=== PATIENT | female | born 1975 | race Two or more races ===

== ENCOUNTER 2017-06-20 01:11 | Emergency (ER) | payer SELFPAY ==
[2017-06-20] MEDS ORDERED: LIDOCAINE 4%/TETRACAINE 0.5%/EPI 0.18% 5 ML TOPICAL SOLN TOP ONE (03:18)
--- NOTE | 2017-06-20 03:19 | ER Document Report ---
ED Skin Rash/Insect Bite/Abscs - General Chief Complaint: Abscess Stated Complaint: INNER THIGH PAIN Time Seen by Provider: 06/20/17 03:12 Notes: Patient is a 41-year-old female comes emergency department for chief complaint of a tender, red, draining area on her right inner thigh. This has been going on for about 1 week. She denies fevers, nausea or vomiting, denies any other complaints. She denies any daily medications or history of same. TRAVEL OUTSIDE OF THE [place] IN LAST 30 DAYS: No - Related Data Allergies/Adverse Reactions: ciprofloxacin [From Cipro] Allergy (Verified 06/20/17 02:28) Past Medical History - General Information source: Patient - Social History Smoking Status: Current Every Day Smoker Chew tobacco use (# tins/day): No Frequency of alcohol use: None Drug Abuse: None Lives with: Family Family History: Reviewed & Not Pertinent Patient has suicidal ideation: No Patient has homicidal ideation: No - Medical History Medical History: Negative Renal/ Medical History: Denies: Hx Peritoneal Dialysis Surgical Hx: Negative - Immunizations Immunizations up to date: Yes Hx Diphtheria, Pertussis, Tetanus Vaccination: Yes Review of Systems - Review of Systems Constitutional: No symptoms reported EENT: No symptoms reported Cardiovascular: No symptoms reported Respiratory: No symptoms reported Gastrointestinal: No symptoms reported Genitourinary: No symptoms reported Female Genitourinary: No symptoms reported Musculoskeletal: No symptoms reported Skin: See HPI Hematologic/Lymphatic: No symptoms reported Neurological/Psychological: No symptoms reported Physical Exam - Vital signs Vitals: Temp Pulse Resp BP Pulse Ox 98.3 F 92 18 120/74 100 06/20/17 01:18 06/20/17 01:18 06/20/17 01:18 06/20/17 01:18 06/20/17 01:18 Interpretation: Normal - General General appearance: Appears well, Alert In distress: None - Patient appears slightly sedated - HEENT Head: Normocephalic, Atraumatic Eyes: Normal Pupils: PERRL - Respiratory Respiratory status: No respiratory distress Chest status: Nontender Breath sounds: Normal Chest palpation: Normal - Cardiovascular Rhythm: Regular Heart sounds: Normal auscultation Murmur: No - Abdominal Inspection: Normal Distension: No distension Bowel sounds: Normal Tenderness: Nontender Organomegaly: No organomegaly - Back Back: Normal, Nontender - Extremities General upper extremity: Normal inspection, Nontender, Normal color, Normal ROM , Normal temperature General lower extremity: Other - Right proximal medial thigh with a fluctuant, indurated area with mild surrounding erythema consistent with an abscess - Neurological Neuro grossly intact: Yes Cognition: Normal Orientation: AAOx4 Jose Coma Scale Eye Opening: Spontaneous Jose Coma Scale Verbal: Oriented Jose Coma Scale Motor: Obeys Commands [place] Coma Scale Total: 15 Speech: Normal Cranial nerves: Facial palsy - Left-sided facial palsy Motor strength normal: LUE, RUE, LLE, RLE Sensory: Normal - Psychological Associated symptoms: Normal affect, Normal mood - Skin Skin Temperature: Warm Skin Moisture: Dry Skin Color: Normal Course - Re-evaluation Re-evalutation: Right medial thigh abscess clean, drained, packed, dressed. 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 Patient somewhat sedated, states her boyfriend gave her something before she came in for the pain, however she does state understanding of recommendations and instructions for care, follow-up, and return precautions. - Vital Signs Vital signs: Temp Pulse Resp BP Pulse Ox 97.8 F 88 16 122/75 99 06/20/17 04:47 06/20/17 04:47 06/20/17 04:47 06/20/17 04:47 06/20/17 04:47 Procedures - Incision and Drainage Right medial thigh Type: Single Anesthetic type: Other - l.e.t. Blade size: 11 I&D procedure: Shurclens applied - Surgical cleanser, Iodoform packing placed, Sterile dressing applied Incision Method: Incision made by scalpel Amount/type of drainage: Moderately large amount of purulent drainage with small bloody drainage Discharge - Discharge Clinical Impression: Abscess Condition: Stable Disposition: HOME, SELF-CARE Additional Instructions: The abscess has been drained and packed. Please remove the packing in 48 hours. Dress with gauze and clean dressing, clean gently with soap and water, take the prescribed antibiotic. Follow-up with primary care. Return immediately if this worsens in any way including spreading redness, fever, or any other concerning symptoms. Prescriptions: Cephalexin Monohydrate [Keflex 500 mg Capsule] 500 mg PO QID #20 capsule
[2017-06-20 04:58] VITALS: BP 122/75
== END 2017-06-20 05:09 | disposition home or self-care (01) ==
LOC: ER 01:11
PROC: 0H9HXZZ Drainage of Right Upper Leg Skin, External Approach (ICD-10-PCS; principal; 2017-06-20)
DX: L02.415 Cutaneous abscess of right lower limb (principal); F17.200 Nicotine dependence, unspecified, uncomplicated; Z88.3 Allergy status to other anti-infective agents
CPT/HCPCS: 99283; 10060; A6266; J3490

== ENCOUNTER 2020-03-06 15:30 | Emergency (ER) | payer SELFPAY ==
--- NOTE | 2020-03-06 18:34 | ER Document Report ---
ED General - General Chief Complaint: Headache Stated Complaint: HEADACHE/SORE THROAT/SHORTNESS OF BREATH Time Seen by Provider: 03/06/20 18:02 Notes: CHIEF COMPLAINT: Sore throat, headache, shortness of breath HPI: 44-year-old female presenting for 3 days of sore throat with frontal headache, shortness of breath, no chest pain. No definitive fever complains of generalized body ache. ROS: See HPI - all other systems were reviewed and are otherwise negative Constitutional: no fever Eyes: no drainage, no blurred vision ENT: + runny nose, + sore throat Cardiovascular: no chest pain Resp: + SOB, + cough GI: no vomiting, no diarrhea, no abdominal pain : no dysuria Integumentary: no rash Allergy: no hives Musculoskeletal: no extremity pain or swelling Neurological: no numbness/tingling, no weakness MEDICATIONS: I agree with the patient medications as charted by the RN. ALLERGIES: I agree with the allergies as charted by the RN. PAST MEDICAL HISTORY/PAST SURGICAL HISTORY: Reviewed and agree as charted by RN. SOCIAL HISTORY: Reviewed and agree as charted by RN. FAMILY HISTORY: No significant familial comorbid conditions directly related to patient complaint EXAM: Reviewed vital signs as charted by RN. CONSTITUTIONAL: Alert and oriented and responds appropriately to questions. Well-appearing; well-nourished HEAD: Normocephalic; atraumatic EYES: PERRL; Conjunctivae clear, sclerae non-icteric ENT: normal nose; no rhinorrhea; moist mucous membranes; posterior pharynx with moderate erythema with bilateral tonsillar exudate, no uvula edema or deviation, no tonsillar hypertrophy, phonation normal NECK: Supple without meningismus; non-tender; no cervical lymphadenopathy, no masses CARD: RRR; no murmurs, no clicks, no rubs, no gallops; symmetric distal pulses RESP: Normal chest excursion without splinting or tachypnea; breath sounds clear and equal bilaterally; no wheezes, no rhonchi, no rales, pulse oximetry 98% on room air not hypoxic ABD/GI: Normal bowel sounds; non-distended; soft, non-tender, no rebound, no guarding; no palpable organomegaly or masses. BACK: The back appears normal and is non-tender to palpation, there is no CVA tenderness EXT: Normal ROM in all joints; non-tender to palpation; no cyanosis, no effusions, no edema SKIN: Normal color for age and race; warm; dry; good turgor; no acute lesions noted NEURO: Moves all extremities equally; Motor and sensory function intact PSYCH: The patient's mood and manner are appropriate. Grooming and personal hygiene are appropriate. MDM: 44-year-old female primarily for sore throat, does have moderate erythema in the posterior pharynx with exudate suspect strep or mono. She does complain of some shortness of breath does seem to have a dry cough will obtain a chest x- ray for pneumonia. If strep and mono are positive we will not obtain COVID study if those are negative will obtain COVID study TRAVEL OUTSIDE OF THE [place] IN LAST 30 DAYS: No - Related Data Allergies/Adverse Reactions: ciprofloxacin [From Cipro] Allergy (Verified 03/06/20 18:41) Past Medical History - Social History Smoking Status: Unknown if Ever Smoked Family History: Reviewed & Not Pertinent Renal/ Medical History: Denies: Hx Peritoneal Dialysis - Immunizations Immunizations up to date: Yes Hx Diphtheria, Pertussis, Tetanus Vaccination: Yes Physical Exam - Vital signs Vitals: Temp 98.5 F 03/06/20 18:00 Course - Re-evaluation Re-evalutation: 03/06/20 19:22 Patient is positive for strep throat I discussed this with her she prefers a Bicillin injection I will write her for Diflucan afterwards as she states she gets yeast infections - Vital Signs Vital signs: Temp Pulse Resp BP Pulse Ox 98.5 F 81 17 109/81 99 03/06/20 18:03 03/06/20 18:03 03/06/20 18:03 03/06/20 18:03 03/06/20 18:03 Discharge - Discharge Clinical Impression: Strep pharyngitis Condition: Stable Disposition: HOME, SELF-CARE Additional Instructions: 1. medicines as prescribed 2. take Motrin/Tylenol consistently for pain and fever 3. hydrate well at home with fluids/juices 4. recheck with your PCP for further evaluation and treatment, call for appt. 5. return to the ED for any difficulty swallowing or worsening condition 6. warm salt water gargles for throat discomfort 3 times daily Prescriptions: Fluconazole [Diflucan 100 Mg Tablet] 150 mg PO DAILY PRN #2 tablet PRN Reason:
--- NOTE | 2020-03-06 18:58 | RADIOLOGY REPORT (SQ) ---
EXAM DESCRIPTION: CHEST SINGLE VIEW IMAGES COMPLETED DATE/TIME: 03/06/2020 6:31 pm REASON FOR STUDY: cough COMPARISON: None. TECHNIQUE: Single frontal radiographic view of the chest acquired. NUMBER OF VIEWS: One view. LIMITATIONS: None. FINDINGS: LUNGS AND PLEURA: No pneumothorax. No consolidation or pleural effusion. MEDIASTINUM AND HILAR STRUCTURES: No contour abnormalities. HEART AND VASCULAR STRUCTURES: Heart normal size. BONES: No acute findings. HARDWARE: None in the chest. OTHER: No other significant finding. IMPRESSION: NO ACUTE FINDINGS. TECHNICAL DOCUMENTATION: JOB ID: [id number] [id number] 2010 [employer]- All Rights Reserved Reading location - IP/workstation name: [email or web address]
[2020-03-06] MEDS ORDERED: PENICILLIN G BENZATHINE 1.2 MILLION UNIT/2 ML DISP.SYRIN IM ONE (19:22)
[2020-03-06 20:13] VITALS: BP 123/76
== END 2020-03-06 20:15 | disposition home or self-care (01) ==
LOC: ER 15:30
DX: J02.0 Streptococcal pharyngitis (principal); R51 Headache; R06.02 Shortness of breath; Z88.1 Allergy status to other antibiotic agents
CPT/HCPCS: 99283; 96372; 36415; 87880; 86308; 71045; J0561